=== PATIENT | male | born 1975 | race African-American/Black ===

== ENCOUNTER 2016-12-21 07:33 | Emergency (ER) | payer OTHER ==
--- NOTE | 2016-12-21 07:51 | ED Physician Documentation ---
PD HPI LOWER EXT INJURY - Stated complaint Stated Complaint: LT FOOT INJ - Chief complaint Chief Complaint: Ext Problem - History obtained from History obtained from: Patient - History of Present Illness PD HPI LOW EXT INJURY LOCATION: Left, Foot Type of injury: Other (No recent injury.) Timing - onset: Yesterday Worsened by: Moving, Palpating, Other (weight bearing) Associated symptoms: No: Weakness, Numbness, Swelling Similar symptoms before: Diagnosis (Treated for cellulitis of left foot three weeks ago.) - Treatment prior to arrival Treatment prior to arrival: Aleve prior to arrival. - Additional information Additional information: The patient is a 41-year-old male who presents with pain in his left foot, at the base of the second and third toes. His current pain started yesterday, and is worse with palpation or with weightbearing. He has a history of similar pain 3 weeks ago and was treated at that time with cephalexin for an infection of the foot. He denies any injury. He is not diabetic. Review of Systems Constitutional: denies: Fever Nose: denies: Congestion Respiratory: denies: Dyspnea Skin: denies: Rash Musculoskeletal: reports: Extremity pain (left foot). denies: Back pain Neurologic: denies: Focal weakness, Numbness, Headache PD PAST MEDICAL HISTORY - Past Medical History Past Medical History: Yes Cardiovascular: Hypertension Respiratory: Asthma Psych: Bipolar disorder - Past Surgical History Past Surgical History: No - Present Medications Home Medications: Ambulatory Orders Medication Instructions Recorded Confirmed Divalproex ER [Depakote ER] 0 mg PO DAILY 12/21/16 12/21/16 Naproxen 500 mg PO BID PRN #30 tablet 12/21/16 amLODIPine [Norvasc] 0 mg PO DAILY 12/21/16 12/21/16 - Allergies Allergies/Adverse Reactions: Allergies Allergy/AdvReac Type Severity Reaction Status Date / Time No Known Drug Allergies Allergy Verified 12/21/16 07:42 - Social History Does the pt smoke?: No Smoking Status: Never smoker Does the pt drink ETOH?: No Does the pt have substance abuse?: No - Immunizations Immunizations are current?: Yes PD ED PE NORMAL - Vitals Vital signs reviewed: Yes (normal) - General General: Alert and oriented X 3, Well developed/nourished - HEENT HEENT: Atraumatic - Respiratory Respiratory: No respiratory distress - Derm Derm: Normal color, No rash - Extremities Extremities: No edema, No calf tenderness / cord, Other (There is tenderness to palpation of the distal left foot at the level of the distal second and third metatarsals. It is tender both dorsally and on the plantar aspect. The pain is exacerbated with squeezing of the foot. There is no warmth, erythema, or appreciable swelling. Distal neurovascular is intact.) - Neuro Neuro: Alert and oriented X 3, No motor deficit, No sensory deficit Results - Vitals Vitals: Vital Signs - 24 hr 12/21/16 12/21/16 07:38 08:55 Temperature 36.9 C Heart Rate 79 68 Respiratory 16 14 Rate Blood Pressure 131/72 H 115/71 O2 Saturation 95 95 Oxygen O2 Source Room air - Rads (name of study) left foot Radiology: Prelim report reviewed, EMP read contemporaneously, See rad report ( No acute bony abnormality. Degenerative changes of the medial midfoot.) PD MEDICAL DECISION MAKING - ED course Complexity details: reviewed results, re-evaluated patient, considered differential, d/w patient, d/w family ED course: The patient's presentation is most consistent with arthritic pain of his left distal foot. There is no evidence of infection or contusion. There is no acute bony abnormality on x-ray examination. I discussed with the patient and his the results of the imaging study, symptomatic treatment and outpatient followup, as well as potentially worrisome signs or symptoms that should prompt reevaluation in the emergency department. He is being discharged with a prescription for Naprosyn. Crutches were dispensed. Departure - Departure Disposition: 01 Home, Self Care Clinical Impression: Arthritic-like pain Qualifiers: Joint pain location: foot Laterality: left Qualified Code(s): M25.572 - Pain in left ankle and joints of left foot Condition: Stable Instructions: ED Joint Pain Follow-Up: [facility] [Provider Group] Prescriptions: Naproxen 500 mg PO BID PRN #30 tablet PRN Reason: Pain Comments: Keep your right foot elevated as much the time as possible. Wear shoes that allow plenty of space for the width of your foot. You can use Naprosyn as prescribed if needed for pain. Follow up with your primary physician within 2 weeks. Call to schedule an appointment. Return to the emergency department if you develop any sign of infection, increasing pain, or otherwise worsening symptoms.
--- NOTE | 2016-12-21 08:24 | XRAY Preliminary Report ---
Exam: XR Foot 3 View LT IMPRESSION: 1. No fracture evident. 2. Medial midfoot degenerative changes. [facility] SITE ID: [id number]
[2016-12-21 08:55] VITALS: BP 115/71
--- NOTE | 2016-12-21 08:55 | XRAY Report ---
EXAM: LEFT FOOT RADIOGRAPHY EXAM DATE: 12/21/2016 08:00 AM. CLINICAL HISTORY: Pain at distal second and third metatarsals. COMPARISON: None. TECHNIQUE: 3 views. FINDINGS: Bones: Normal. No fractures or bone lesions. Joints: Mild joint space narrowing and osteophyte formation involving the dorsal medial aspect of med ial cuneiformnavicular joint. Tarsometatarsal joints are normally aligned. Mild narrowing medial aspect of left first tarsometatarsal joint. The second and third tarsometatarsal joints may be slightly narrowed. Soft Tissues: Normal. No soft tissue swelling. IMPRESSION: 1. No fracture evident. 2. Medial midfoot degenerative changes. [facility] Referring Provider Line: [phone] SITE ID: [id number]
== END 2016-12-21 09:12 | disposition home or self-care (01) ==
LOC: ED 07:33
DX: M25.572 Pain in left ankle and joints of left foot (principal); I10 Essential (primary) hypertension
CPT/HCPCS: 99283

== ENCOUNTER 2017-09-23 10:37 | Outpatient (CLI) | payer OTHER | END 2017-09-23 10:38 | disposition home or self-care (01) | LOC: SC 10:37 | PROVIDERS: ATTEND Internal Medicine Pulmonary Disease | DX: G47.10 Hypersomnia, unspecified (principal); G47.8 Other sleep disorders; R06.83 Snoring; R51 Headache | CPT/HCPCS: 99203; 99212 ==

== ENCOUNTER 2017-11-13 22:08 | Outpatient (CLI) | payer OTHER | END 2017-11-13 22:09 | disposition home or self-care (01) | LOC: SC 22:08 | PROVIDERS: ATTEND Internal Medicine Pulmonary Disease | DX: G47.33 Obstructive sleep apnea (adult) (pediatric) (principal) | CPT/HCPCS: 95810 ==

== ENCOUNTER 2017-12-16 14:26 | Outpatient (CLI) | payer OTHER | END 2017-12-16 14:27 | disposition home or self-care (01) | LOC: SC 14:26 | PROVIDERS: ATTEND Nurse Practitioner Family | DX: G47.33 Obstructive sleep apnea (adult) (pediatric) (principal) | CPT/HCPCS: 99212; 99214 ==

== ENCOUNTER 2018-06-02 12:57 | Outpatient (CLI) | payer OTHER | END 2018-06-02 12:58 | disposition home or self-care (01) | LOC: SC 12:57 | PROVIDERS: ATTEND Internal Medicine Pulmonary Disease | DX: G47.33 Obstructive sleep apnea (adult) (pediatric) (principal) | CPT/HCPCS: 99212; 99213 ==